=== PATIENT | female | born 1945 | race Caucasian/White ===

== ENCOUNTER → 2024-03-22 06:54 | Outpatient (REF) | payer MEDICARE, OTHER, SELFPAY ==
[2024-03-22 09:40] LABS: % Basophils 0.7 % (0-2); % Eosinophils 3.5 % (0-6); % Immature Granulocytes 0.2 % (0-0.5); % Lymphocytes 19.8 % (20.5-51.1); % Neutrophils 65.8 % (42.2-75.2); Absolute Eosinophils 0.2 10^3/uL (0-0.7); Absolute Lymphocytes 1.1 10^3/uL (1.2-3.4); Absolute Monocytes 0.6 10^3/uL (0.1-0.6); Absolute Neutrophils 3.8 10^3/uL (1.4-6.5); Hematocrit 42.4 % (37.0-47.0); Hemoglobin 14.2 g/dL (12.0-16.0); Mean Corp Hgb Conc. 33.5 g/dL (33.0-37.0); Mean Corpuscular Hgb 31.5 pg (27.0-31.0); Mean Platelet Volume 11.5 fL (7.4-10.4); Nucleated Red Blood Cells % 0 %; Platelet Count 197 10^3/uL (130-400); Red Blood Cell Count 4.51 10^6/uL (4.20-5.40); Red Cell Dist. Width 12.4 % (11.5-14.5); White Blood Cell Count 5.7 10^3/uL (4.8-10.8)
[2024-03-22 09:57] LABS: ALT (SGPT) 32 U/L (0-35); AST (SGOT) 33 U/L (14-36)
== END ==
LOC: HWLAB 06:54
PROVIDERS: ATTENDING PHYSICIAN Nurse Practitioner
DX: R79.89 Other specified abnormal findings of blood chemistry (principal)
CPT/HCPCS: 36415; 84450; 84460; 85025

== ENCOUNTER 2024-12-01 16:08 | Observation (INO) | payer MEDICARE, OTHER, SELFPAY ==
[2024-12-01 10:53] VITALS: BP 136/71
--- NOTE | 2024-12-01 11:57 | ED.GENMED ---
History of Present Illness
General
Chief Complaint: Musculo-Skeletal Complaint
Source: patient
Exam Limitations: none
Time Seen by Provider: 12/01/24 10:57
Nursing documentation reviewed up to this point in time: agreed with
History of Present Illness
History of Present Illness:
79-year-old female presents to the ER complaining left hip pain. She reports at 8:45 PM last night she was walking outside of her house and slipped on the ice hitting her left hip. She was able to get herself back in bed however this morning was
barely able to put weight on her hip. She was able to crawl to the bathroom. She is on Eliquis however denies hitting her head. She denies any headache neck pain. No other complaints of pain.
Review of Systems
Review of Systems
Allergies reviewed?: Yes
All Other Systems: ROS reviewed and negative except as documented in HPI and ROS
Constitutional: Reports no symptoms; Denies fever, fatigue or chills
Respiratory: Reports no symptoms
Cardiac: Reports no symptoms
ABD/GI: Reports no symptoms; Denies nausea or vomiting
Musculoskeletal: Reports other (Left hip pain)
Skin: Reports no symptoms
Neurological: Reports no symptoms and other (Denies loss of consciousness); Denies dizzy or headache
Psychiatric: Reports no symptoms
Phy Exam
General Physical Exam
General Presentation: no apparent distress
General age: appears stated age
General Skin: warm and dry
General Habitus: normal
General Mental: alert
General Hydration: appears well hydrated
Cardiovascular Exam
Cardiovascular Exam: regular rate/rhythm, no murmur and normal peripheral pulses
Pulmonary Exam
Pulmonary Exam: lungs clear and no respiratory distress
Neurological Exam
Neurological Exam: alert and oriented x3
Musculoskeletal Exam
Musculoskeletal Exam: other (Full range of motion to left hip however patient complains of pain to left groin with movement)
Skin Exam
Skin Exam: normal color and warm/dry
Psychiatric Exam
Psychiatric Exam: normal mood/affect
Course
Orders/Labs/Results
Orders:
Orders
12/01/24 11:55
Hip, Left 2-3 Views [CR Hip - LT w/wo Pel 2-3 Vw*] Urgent
Comment:
Reason For Exam: trauma
Include a pelvis x-ray?: Yes
12/01/24 14:04
Vital Signs- Treatment ONCE
Frequency: Once
Morphine Sulfate 2 mg IV NOW STA
12/01/24 14:07
IV Insert/Care/Rem.- Treatment PRN
12/01/24 14:32
Complete Blood Count/With Diff Urgent
Comprehensive Metabolic Panel Urgent
12/01/24 15:09
CT Head W/o Iv Contrast Urgent
Comment:
Reason For Exam: trauma
12/01/24 15:53
Admit/Transfer Patient As Directed
Co-Sign Provider:
Level of Care: Observation services
Assign to:: Medical/Surgical
Physician / Group: stephen lezama
Diagnosis: mech fall with inferior /superior l pubic rami fx's
Code Status As Directed
Resuscitation Status: Full Code
12/01/24 16:00
PRN Pain Medication Management As Directed
May give lesser potent ordered pain med per pt: Yes
preference::
Protocol:: Medication orders for pain may be administered in a
manner that supports deferring to patient preference
when the pt is:
- Requesting an ordered lesser potent pain medication.
Least to most potent pain medications are defined
as: acetaminophen < NSAID < tramadol < opioids
(morphine, oxycodone, hydromorphone).
- Requesting a lesser dose of the same medication IF
ORDERED.
- Requesting a less intrusive route of administration
if both routes are prescribed by the provider (PO <
IV).
12/01/24 16:02
ORTHOPEDIC CONSULT Routine
Consulting Provider: Joshua Sam
Was physician already notified: Yes
Reason for consult: superior inferior left pubic rami fx fall
Abnormal Lab Results
12/01/24
14:32
MCH 31.5 H pg
(27.0-31.0)
MPV 10.8 H fL
(7.4-10.4)
Absolute Neuts (auto) 8.3 H 10^3/uL
(1.4-6.5)
Absolute Lymphs (auto) 0.7 L 10^3/uL
(1.2-3.4)
Absolute Monos (auto) 0.8 H 10^3/uL
(0.1-0.6)
Neutrophils % 83.5 H %
(42.2-75.2)
Lymphocytes % 7.1 L %
(20.5-51.1)
BUN 21 H mg/dl
(7-17)
Glucose 122 H mg/dl
(70-99)
Total Bilirubin 1.5 H mg/dl
(0.2-1.3)
12/01/24 14:32
12/01/24 14:32
Vital Signs
Initial and Last Documented VS:
Initial Vital Signs
Temp Pulse Resp BP Pulse Ox
98.3 F 108 16 136/71 98
12/01/24 10:53 12/01/24 10:53 12/01/24 10:53 12/01/24 10:53 12/01/24 10:53
Last Documented Vital Signs
Temp Pulse Resp BP Pulse Ox
98.3 F 96 18 129/68 93
12/01/24 10:53 12/01/24 14:55 12/01/24 14:55 12/01/24 14:55 12/01/24 14:55
MDM/Problems Addressed
Differential Diagnosis Includes:
not limited to:pelvic/hip / fracture
MDM/Problems Addressed:
Patient is an 79-year-old female who presents after fall last evening. Patient fell around 845 last evening outside of her house on ice and landed on her hip. She denies hitting her head. She is on Eliquis however has no headache no obvious head
injury and injury has been greater than 12 hours with no complaints. Patient's only complaint is left hip pain. On x-ray she does have fractures to left superior acetabular juncture left inferior pubic ramus. She is unable to bear weight and does
live alone. She will require inpatient rehab. Case management consulted there will be a bed tomorrow. Patient will require overnight stay for pain management PT consult rehab can be arranged. Will check basic labs and plan for admission.
Pt was admitted; I did order ct which was negative .
*Critical Care Note
Total Time (30-74mins, 75-104mins- exclusive of procedures): Not Applicable
ED Attending Note
-
Portions of this chart may have been created with voice recognition software.� Occasional wrong word or��sound alike� substitutions may have occurred due to the inherent limitations of voice recognition software.
Discharge Plan
Departure
Patient Disposition: Admit
Date of Disposition: 12/01/24
Time of Disposition: 15:08
Admit to: Med/Surg
Admit to doctor: hospitalist
Presentation/result/management discussed w/ accepting MD/DO: Hospitalist
Patient with high blood pressure during this ER visit?: No
Condition: Fair
Covid-19: Not Applicable
Discharge Problem:
pubic ramus fracture
Interventions
Interventions:
*Risk Screen - Suicide Last Done: 12/01/24 10:53
*General Assessment Last Done: 12/01/24 10:53
*Neglect/Abuse Screening Last Done: 12/01/24 10:53
ED- Fall Risk Assessment Last Done: 12/01/24 14:36
*ED COVID-19 Vaccine History Last Done: 12/01/24 12:34
ED-Musculoskeletal Assessment Last Done: 12/01/24 14:36
--- NOTE | 2024-12-01 14:29 | CM ---
ED CM consulted for SNF placement
Bedside meeting with pt, her granddtr, and lead pressman
Pt resides alone at [facility]
She is independent with her ADLs, no ADs, drives+
Pt with pelvic fx- no plan for surgical intervention at this time
Pt will need SNF placement and without qualifying stay
Referral to [facility] via [facility]
Bed available tomorrow per admissions/Marley
CM plan to reach out to [facility] in the AM to check into [facility] waiver coverage
If not, pt will be private pay at $567/daily
Pt in agreement with costs
Discharge Disposition- [facility] SNF tomorrow via ambulance
[2024-12-01] MEDS: MORPHINE SULFATE 2 MG IV (14:32)
[2024-12-01 14:36] VITALS: BMI 22.6
[2024-12-01 14:40] LABS: % Basophils 0.3 % (0-2); % Eosinophils 1.1 % (0-6); % Immature Granulocytes 0.4 % (0-0.5); % Lymphocytes 7.1 % (20.5-51.1); % Monocytes 7.6 % (1.7-9.3); % Neutrophils 83.5 % (42.2-75.2); Absolute Eosinophils 0.1 10^3/uL (0-0.7); Absolute Lymphocytes 0.7 10^3/uL (1.2-3.4); Absolute Monocytes 0.8 10^3/uL (0.1-0.6); Absolute Neutrophils 8.3 10^3/uL (1.4-6.5); Hematocrit 41.6 % (37.0-47.0); Hemoglobin 14.6 g/dL (12.0-16.0); Mean Corp Hgb Conc. 35.1 g/dL (33.0-37.0); Mean Corpuscular Hgb 31.5 pg (27.0-31.0); Mean Corpuscular Volume 89.7 fL (81.0-99.0); Mean Platelet Volume 10.8 fL (7.4-10.4); Nucleated Red Blood Cells % 0 %; Platelet Count 146 10^3/uL (130-400); Red Blood Cell Count 4.64 10^6/uL (4.20-5.40); Red Cell Dist. Width 12.4 % (11.5-14.5); White Blood Cell Count 9.9 10^3/uL (4.8-10.8)
[2024-12-01 14:55] VITALS: BP 129/68
[2024-12-01 14:56] LABS: ALT (SGPT) 33 U/L (0-35); AST (SGOT) 36 U/L (14-36); Albumin 3.9 g/dl (3.5-5.0); Alkaline Phosphatase 90 U/L (38-126); Blood Urea Nitrogen 21 mg/dl (7-17); Calcium 8.8 mg/dl (8.4-10.2); Carbon Dioxide 27 mmol/L (22-30); Chloride 104 mmol/L (98-107); Estimated Creatinine Clearance 50 ml/min; Glucose 122 mg/dl (70-99); Potassium 4.1 mmol/L (3.5-5.1); Sodium 138 mmol/L (135-145); Total Bilirubin 1.5 mg/dl (0.2-1.3); Total Protein 6.6 g/dl (6.3-8.2); eGFR > 60.00
--- NOTE | 2024-12-01 15:19 | HPS.HSE ---
Family Physician
-
Family Physician: STUART Calzada
Chief Complaint
-
Fall, unable to stand
History of Present Illness
79-year-old female from [facility] ,where she lives alone who states yesterday 11/30/2024 at 8:45 PM she fell while walking outside of her house slipped on the ice hitting her left hip. She reports she was able to get herself back in bed, however
this morning she was barely able to put weight on her left hip she was able to crawl to the bathroom. She is on Eliquis and denies hitting her head no LOC. She complains of pain in her left hip and groin area. In the ER she was noted to have
nondisplaced fractures of the left superior puboacetabular junction and left inferior pubic ramus fractures. She has past medical history of near syncope x 4 since 2010, A-fib on Eliquis, CAD, HLD, osteopenia, arthritis,Right sided breast cancer
2020 status postlumpectomy, radiation
Medical History
Past Medical History
Past Medical History: Reports Other
Additional Past Medical History:
near syncope x 4 since 2010
A-fib on Eliquis
CAD/stent proximal LAD 11/03/2012
HLD
osteopenia
arthritis
Right sided breast cancer 2020 status postlumpectomy/radiation on current anastrozole
Past Surgical History: Reports Other
Additional Past Surgical History:
Appendectomy
Tonsillectomy
Right sided breast cancer 2020 status postlumpectomy/radiation on current anastrozole
Cardiac cath stent proximal LAD 11/03/2012
Social History
Tobacco: Non-smoker
Alcohol: None
Drug: None
Personal: Single
Living: Alone ([facility])
Employment: Retired
Family History
Family History: Not pertinent
Allergies / Home Medications
Allergies reflects when Allergies were last updated in [employer].
Home Medications with original date entered in [employer]
Allergy/Medication List:
Allergies
Allergy/AdvReac Type Severity Reaction Status Date / Time
Iodinated Contrast Media Allergy Rash Verified 12/01/24 10:53
[IV Dye, Iodine Containing
Contrast ]
quinine [Quinine] Allergy Rash Verified 12/01/24 10:53
Home Medications
rosuvastatin 20 mg tablet 20 mg PO QPM 03/23/18
acetaminophen 325 mg tablet 325 mg PO DAILYPRN PRN mild pain 12/01/24
anastrozole 1 mg tablet 1 mg PO QPM 12/01/24
apixaban 5 mg tablet (Eliquis) 5 mg PO BID 12/01/24
losartan 50 mg tablet 50 mg PO QPM 12/01/24
metoprolol succinate 25 mg tablet,extended release 24 hr 37.5 mg PO DAILY 12/01/24
psyllium husk 0.4 gram capsule (Metamucil) 0.4 g PO NOON 12/01/24
psyllium husk 0.4 gram capsule (Metamucil) 0.8 g PO BID@0800,2000 12/01/24
therapeutic multivitamin 1 tab PO DAILY 12/01/24
Review of Systems
-
History Source: Patient
A 12 point ROS was completed and negative except as noted: Yes
Constitutional: Denies Fever, Fatigue or Chills
EENT: Denies Sore Throat or Runny Nose
Respiratory: Denies Cough or Trouble Breathing
Cardiac: Denies Chest Pain, Diaphoresis, Palpitations or Syncope
Abdomen/GI: Denies Abdominal Pain, Nausea, Vomiting, Diarrhea, Constipated, Bloody Stools or Black Stools
: Denies Dysuria, Frequency, Flank Pain, Incontinence, Difficulty Voiding or Urgency
Musculoskeletal: Reports Other (Pain left lower back just above buttocks area); Denies Joint Pain or Edema
Skin: Denies Itching, Rash or Other
Neurological: Denies Dizzy, Headache or Weakness
Endocrine: Reports No Symptoms
Hematologic/Lymphatic: Reports No Symptoms
Psych: Reports Calm
Physical Exam
Vital Signs
Vital Signs
Temp Pulse Resp BP Pulse Ox
98.3 F 96 18 129/68 93
12/01/24 10:53 12/01/24 14:55 12/01/24 14:55 12/01/24 14:55 12/01/24 14:55
Physical Exam
General: Conversant and Pain; No Fever or Chills
HEENT: NormoCephalic, Anicteric, Moist mucous membranes, Atraumatic, PERRLA, [place] Conjunctivae, No Ptosis and Neck Nontender
Respiratory: Clear; No Wheezes, Rales or Rhonchi
Cardiac: S1/S2 and Regular Rhythm; No Murmur, Rub, Gallop or Peripheral Edema
Breast: Deferred by me
GI: Soft, Non Tender, Non Distended, Normal Bowel Sounds and No Hepatosplenomegaly
Rectal: Deferred by Provider
Genito-urinary: Deferred by me
Musculoskeletal: No Clubbing, No Cyanosis, No Edema and Other (Pain left lower back just above buttocks area)
Skin: Warm and Dry; No Rash or Jaundice
Neuro: AO x 3, Cranial Nerves Intact, No Sensory Deficits and Other (Limit moving of legs secondary to pelvic fractures); No Slurred Speech, Facial Droop, Tremors or Sedated
Psych: Calm
Laboratory Results
-
12/01/24 14:32
12/01/24 14:32
Laboratory Results
Total Bilirubin 1.5 mg/dl (0.2-1.3) H 12/01/24 14:32
AST 36 U/L (14-36) 12/01/24 14:32
ALT 33 U/L (0-35) 12/01/24 14:32
Alkaline Phosphatase 90 U/L (38-126) 12/01/24 14:32
Data Reviewed
-
Lab Data: Labs Reviewed by me
Impression/Plan
-
Impression/plan:
Observation MedSurg
#Mechanical fall with left superior/inferior pubic ramus fractures
-CT head pending
-Tylenol as needed mild pain, percocet - mod pain, morphine severe pain
-Lidoderm patch to left lower back just above buttocks
-Bowel regimen MiraLAX daily, patient's Metamucil, senna twice daily
-Consult PT/OT
-Consult case management for rehab placement ([facility] as patient currently lives there independent)
X-ray left hip pelvis:
1. ACUTE NONDISPLACED FRACTURES of the LEFT SUPERIOR PUBOACETABULAR JUNCTION and LEFT INFERIOR PUBIC RAMUS.
2. Minimal bilateral osteoarthritis of the hips.
3. 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
4. Severe right-sided facet joint arthrosis at L4/L5.
5. Large 9.2 cm calcified uterine leiomyoma.
#A-fib
-Continue Eliquis 5 mg twice daily
-Continue metoprolol 25 XL in the a.m.
#HTN�benign
BP 129/68
-Continue losartan 50 mg at dinner
#CAD
#Cardiac cath stent proximal LAD 11/03/2012
-Continue metoprolol 25 XL in a.m., Crestor 20 mg at dinner
2D echo 01/03/2023: EF 60 to 65%, normal LVS LVSF, no wall abnormalities, stage I diastolic dysfunction, mild aortic regurg, mild tricuspid regurg, pulm arterial pressure 25 mmHg
#Right sided breast cancer 2020 status postlumpectomy, radiation
-Continue anastrozole 1 mg at dinner
Severe DDD L4/L5 and L5/S1 per CT
Severe right-sided facet joint arthrosis L4/L5
Incidental large 9.2 cm calcified uterine leiomyoma on CT
DVT prophylaxis
Continue Eliquis 5 mg twice daily
Full code
--- NOTE | 2024-12-01 16:03 | W.PN.UPDATE ---
Update Note
Progress Note Update
This is an addendum to the H&P dictated by Nohemi Leonardo on 12/01/2024.
I saw and examined the patient.
The [employer]IM[employer] or PA's note was reviewed and I agree with the note.
Comment:
Patient 79 years old female with history of hyperlipidemia, A-fib, CAD, breast cancer, came into the hospital after a fall. She had a mechanical fall and complained of left hip area and groin pain. She denied hitting her head. She has a mild
right hip discomfort but not as much as the left. Denied chest pain or shortness of breath or loss of consciousness. Denies fevers or chills. She had a hip x-ray that shows nondisplaced fracture of the left superior pubic acetabular junction and
left inferior pubic ramus. Labs unremarkable. She was referred to hospital service for further evaluation.
Physical exam:
General: In distress because of pain in the pelvic area when she moves around
HEENT: Normocephalic, Atraumatic and Moist Mucous Membranes
Respiratory: Clear to Auscultation; Negative Wheezes, Rales or Rhonchi
Cardiac: Regular Rhythm and S1/S2
GI: Soft, Nontender and Nondistended
Musculoskeletal: No Clubbing, No Cyanosis and No Edema
Neuro: Awake, Alert and Oriented
Psych: Calm
A/P:
Mechanical fall with pelvic fracture--> pain control, PT OT eval, CT pending, ortho eval, trimming caser consult for discharge disposition.
--- NOTE | 2024-12-01 17:04 | CON.ORTHO ---
Consultation
-
Date/Time Consultation Requested: 12/01/24 16:02
Date/Time Consultation Performed: 12/01/24 16:45
Requesting Provider: Nohemi DAVIDSON
Performing Provider: Penelope Lal PA-C, Joshua Sam MD
Reason for Consultation: pelvic fractures
Consultation - Orthopedics
History
79yo female presents to [facility] for left hip and pelvic pain. Last evening, she was walking outside of her house, slipped on ice, and fell. She was unable to get up and managed to crawl inside her house. She then crawled to bed. She
reports that she had pain all night and was not able to sleep. This morning she continued with pain and inability to ambulate so she called and has EMS bring her to the ER for evaluation. Xrays were performed which reveal pelvic fractures. She
denies pain elsewhere. She denies hitting her head. She is in Eliquis
PAST MEDICAL HISTORY: near syncope x 4 since 2010, A-fib on Eliquis, CAD, HLD, osteopenia, arthritis, Right sided breast cancer 2019
PAST SURGICAL HISTORY: Appendectomy, Tonsillectomy, Right sided breast cancer 2020 status postlumpectomy/radiation, Cardiac cath stent proximal LAD 11/03/2012
SOCIAL HISTORY: denies tobacco, alcohol. lives alone in [facility]. Ambulates without assistive device at baseline
FAMILY HISTORY: Noncontributory
REVIEW OF SYSTEMS: 12 point review of systems obtained and negative except those mentioned in the HPI
Allergies / Home Medications
Allergy/AdvReac Type Severity Reaction Status Date / Time
Iodinated Contrast Media Allergy Rash Verified 12/01/24 10:53
[IV Dye, Iodine Containing
Contrast ]
quinine [Quinine] Allergy Rash Verified 12/01/24 10:53
�Medication �Instructions �Recorded
rosuvastatin 20 mg tablet 20 mg PO QPM 03/23/18
acetaminophen 325 mg tablet 325 mg PO DAILYPRN PRN mild pain 12/01/24
anastrozole 1 mg tablet 1 mg PO QPM 12/01/24
apixaban 5 mg tablet (Eliquis) 5 mg PO BID 12/01/24
losartan 50 mg tablet 50 mg PO QPM 12/01/24
metoprolol succinate 25 mg 37.5 mg PO DAILY 12/01/24
tablet,extended release 24 hr
psyllium husk 0.4 gram capsule 0.4 g PO NOON 12/01/24
(Metamucil)
psyllium husk 0.4 gram capsule 0.8 g PO BID@0800,2000 12/01/24
(Metamucil)
therapeutic multivitamin 1 tab PO DAILY 12/01/24
Vital Signs / Lab Results
Temp Pulse Resp BP Pulse Ox
98.3 F 96 18 129/68 93
12/01/24 10:53 12/01/24 14:55 12/01/24 14:55 12/01/24 14:55 12/01/24 14:55
12/01/24 14:32
12/01/24 14:32
RADIOGRAPHIC FINDINGS:
Xrays left hip and pelvis show ACUTE NONDISPLACED FRACTURES of the LEFT SUPERIOR PUBOACETABULAR JUNCTION and LEFT INFERIOR PUBIC RAMUS. Minimal bilateral osteoarthritis of the hips. 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 Severe
right-sided facet joint arthrosis at L4/L5. Large 9.2 cm calcified uterine leiomyoma.
PHYSICAL EXAM:
General: no acute distress. AAOx3
HEENT: NCAT, sclera anicteric, normal hearing
Heart: No JVD
Lungs: Normal work of breathing on room air
MSK: Directed exam of lower extremities reveal skin intact. no discolorations. there is mild tenderness to palpation over the anterior left hip and groin. negative log roll. ROM hip with some discomfort. able to plantarflex and dorsiflex the ankle.
calf soft and nontender. NVI distally
Assessment / Plan
ASSESSMENT: 79yo female with left nondisplaced pelvic fracture
PLAN: Unfortunately, Ms. Lennon has sustained nondisplaced left sided pelvic fractures with her fall last evening. This is amenable to nonoperative treatment. She may be weight bearing as tolerated with a walker. PT/OT evaluation. Continue with pain
management as needed. Follow up outpatient in 4 weeks for repeat pelvis xray. Orthopedics will sign off at this time. Please reach out with any questions or concerns.
[2024-12-01] MEDS: LIDOCAINE 4% PATCH 1 PATCH TOPICAL (17:58)
[2024-12-01 19:21] VITALS: BP 111/62
[2024-12-01 19:30] VITALS: BP 146/79; BMI 22.6
[2024-12-01] MEDS: TYLENOL 650 MG PO (21:06)
[2024-12-01] MEDS: SENOKOT PO (21:07)
[2024-12-01 23:45] VITALS: BP 109/67
[2024-12-02] MEDS: TYLENOL 650 MG PO ×4 (04:01→20:34)
[2024-12-02 05:21] LABS: % Basophils 0.5 % (0-2); % Eosinophils 3.4 % (0-6); % Immature Granulocytes 0.3 % (0-0.5); % Lymphocytes 12.1 % (20.5-51.1); % Neutrophils 75.7 % (42.2-75.2); Absolute Eosinophils 0.3 10^3/uL (0-0.7); Absolute Lymphocytes 0.9 10^3/uL (1.2-3.4); Absolute Monocytes 0.6 10^3/uL (0.1-0.6); Absolute Neutrophils 5.8 10^3/uL (1.4-6.5); Hematocrit 40.2 % (37.0-47.0); Hemoglobin 13.9 g/dL (12.0-16.0); Mean Corp Hgb Conc. 34.6 g/dL (33.0-37.0); Mean Corpuscular Hgb 31.4 pg (27.0-31.0); Mean Corpuscular Volume 90.7 fL (81.0-99.0); Mean Platelet Volume 11.7 fL (7.4-10.4); Nucleated Red Blood Cells % 0 %; Platelet Count 128 10^3/uL (130-400); Red Blood Cell Count 4.43 10^6/uL (4.20-5.40); Red Cell Dist. Width 12.6 % (11.5-14.5); White Blood Cell Count 7.6 10^3/uL (4.8-10.8)
[2024-12-02 05:37] LABS: Blood Urea Nitrogen 18 mg/dl (7-17); Calcium 8.4 mg/dl (8.4-10.2); Carbon Dioxide 25 mmol/L (22-30); Chloride 104 mmol/L (98-107); Estimated Creatinine Clearance 44 ml/min; Glucose 109 mg/dl (70-99); Potassium 4.1 mmol/L (3.5-5.1); Sodium 135 mmol/L (135-145); eGFR > 60.00
[2024-12-02 07:41] VITALS: BP 131/78
--- NOTE | 2024-12-02 08:21 | W.PN.HOSP.TC ---
Today's Communication/Plan
-
Pain control. PT OT.
Assessment / Plan
Assessment / Plan
Physical Exam
General: Conversant and Pain; No Fever or Chills
HEENT: NormoCephalic, Anicteric, Moist mucous membranes, Atraumatic, PERRLA, [place] Conjunctivae, No Ptosis and Neck Nontender
Respiratory: Clear; No Wheezes, Rales or Rhonchi
Cardiac: S1/S2 and Regular Rhythm; No Murmur, Rub, Gallop or Peripheral Edema
Breast: Deferred by me
GI: Soft, Non Tender, Non Distended, Normal Bowel Sounds and No Hepatosplenomegaly
Rectal: Deferred by Provider
Genito-urinary: Deferred by me
Musculoskeletal: No Clubbing, No Cyanosis, No Edema and Other (Pain left lower back just above buttocks area)
Skin: Warm and Dry; No Rash or Jaundice
Neuro: AO x 3, Cranial Nerves Intact, No Sensory Deficits and Other (Limit moving of legs secondary to pelvic fractures); No Slurred Speech, Facial Droop, Tremors or Sedated
Psych: Calm
A/P:
#Mechanical fall with left superior/inferior pubic ramus fractures
-CT head negative for acute intracranial abnormalities
-Tylenol as needed mild pain, percocet - mod pain, morphine severe pain
-Lidoderm patch to left lower back just above buttocks
-Bowel regimen MiraLAX daily, patient's Metamucil, senna twice daily
-Consult PT/OT
-Consult case management for rehab placement ([facility] as patient currently lives there independent)
-Orthopedic consult appreciated
X-ray left hip pelvis:
1. ACUTE NONDISPLACED FRACTURES of the LEFT SUPERIOR PUBOACETABULAR JUNCTION and LEFT INFERIOR PUBIC RAMUS.
2. Minimal bilateral osteoarthritis of the hips.
3. 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
4. Severe right-sided facet joint arthrosis at L4/L5.
5. Large 9.2 cm calcified uterine leiomyoma.
#A-fib
-Continue Eliquis--> she is on 5 mg twice daily but she meets criteria for dose reduction to 2.5 mg twice a day
-Continue metoprolol 25 XL daily
#HTN�benign
BP stable
-Continue losartan 50 mg at dinner and beta-cain in the morning
#CAD
#Cardiac cath stent proximal LAD 11/03/2012
-Continue metoprolol 25 XL in a.m., Crestor 20 mg at dinner
2D echo 01/03/2023: EF 60 to 65%, normal LVS LVSF, no wall abnormalities, stage I diastolic dysfunction, mild aortic regurg, mild tricuspid regurg, pulm arterial pressure 25 mmHg
#Right sided breast cancer 2020 status postlumpectomy, radiation
-Continue anastrozole 1 mg at dinner
Severe DDD L4/L5 and L5/S1 per CT
Severe right-sided facet joint arthrosis L4/L5
Incidental large 9.2 cm calcified uterine leiomyoma on CT
DVT prophylaxis
Continue Eliquis
Full code
Anticipated Discharge: 24 - 48 hours
Subjective/Interval History
-
Date of Service: December 02, 2024
Patient states her pelvic pain is worse when she is moving. Denies chest pain or shortness of breath
Objective Data
-
Labs:
Laboratory Results
12/02/24
04:35
WBC 7.6
Hgb 13.9
Hct 40.2
Plt Count 128 L
Sodium 135
Potassium 4.1
Chloride 104
Carbon Dioxide 25
BUN 18 H
Creatinine 0.8
Glucose 109 H
Calcium 8.4
Vital Signs:
Vital Signs
Temp Pulse Resp BP Pulse Ox
98.1 F 57 14 131/78 96
12/02/24 07:41 12/02/24 07:41 12/02/24 07:41 12/02/24 07:41 12/02/24 07:41
I&O
12/01/24 12/02/24 12/03/24
06:59 06:59 06:59
Output Total 300 / 300
Balance -300 / -300
[2024-12-02 08:40] VITALS: BP 147/79; PULSE 90
--- NOTE | 2024-12-02 08:50 | CM ---
CM spoke with [facility]- pt is eligible for the [facility] waiver program
Per Dr Chris- JAIMIE tomorrow
Update to [facility]- [facility] admissions
Bed remains available tomorrow
Bedside update to pt
She is aware if auth is denied through [facility], bed will be private pay
She remains in agreement with plan
MENDOSA verbally reviewed- copy provided
CM to submit for [facility] waiver auth upon dc
Discharge Disposition- [facility] vs private pay
[2024-12-02 09:00] VITALS: BP 147/79; PULSE 90
[2024-12-02] MEDS: MIRALAX 17 GRAMS PO (09:04)
[2024-12-02] MEDS: ELIQUIS 2.5 MG PO ×2 (09:16→20:22)
[2024-12-02] MEDS: TOPROL XL 37.5 MG PO (09:16)
[2024-12-02] MEDS: SENOKOT 8.6 MG PO (09:17)
[2024-12-02 15:19] VITALS: BP 131/73
[2024-12-02] MEDS: CRESTOR 20 MG PO (17:05)
[2024-12-02] MEDS: COZAAR 50 MG PO (17:05)
[2024-12-02] MEDS: ARIMIDEX 1 MG PO (17:05)
[2024-12-02] MEDS: LIDOCAINE 4% PATCH TOPICAL (20:23)
[2024-12-02] MEDS: SENOKOT PO (20:33)
[2024-12-02 23:00] VITALS: BP 123/60
[2024-12-03 07:30] VITALS: BP 130/56
[2024-12-03 08:08] LABS: Hematocrit 39.6 % (37.0-47.0)
[2024-12-03 08:45] LABS: Blood Urea Nitrogen 21 mg/dl (7-17); Calcium 8.7 mg/dl (8.4-10.2); Carbon Dioxide 25 mmol/L (22-30); Chloride 104 mmol/L (98-107); Estimated Creatinine Clearance 50 ml/min; Glucose 100 mg/dl (70-99); Potassium 4.1 mmol/L (3.5-5.1); Sodium 138 mmol/L (135-145); eGFR > 60.00
[2024-12-03] MEDS: TOPROL XL 37.5 MG PO (08:47)
[2024-12-03] MEDS: SENOKOT 8.6 MG PO (08:47)
[2024-12-03] MEDS: ELIQUIS 2.5 MG PO (08:50)
[2024-12-03] MEDS: MIRALAX 17 GRAMS PO (08:51)
--- NOTE | 2024-12-03 10:14 | W.PN.HOSP.TC ---
Addendum entered and electronically signed by Jalil Oliver MD 12/03/24 10:44:
More than 30 minutes spent in discharge including
Final examination of the patient
Summarizing hospital stay
Instructions for continuing care to all relevant caregivers
Preparation of discharge records, prescriptions, and referral forms
Total time spent (in minutes): 38 mins
Original Note:
Today's Communication/Plan
-
d/c planning for rehab
Assessment / Plan
Assessment / Plan
#Mechanical fall with left superior/inferior pubic ramus fractures
-CT head negative for acute intracranial abnormalities
-Tylenol as needed mild pain, percocet - mod pain, morphine severe pain
-Lidoderm patch to left lower back just above buttocks
-Ortho cleared - no surgical indication
-PT recommended rehab and pending approval
X-ray left hip pelvis:
1. ACUTE NONDISPLACED FRACTURES of the LEFT SUPERIOR PUBOACETABULAR JUNCTION and LEFT INFERIOR PUBIC RAMUS.
2. Minimal bilateral osteoarthritis of the hips.
3. 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
4. Severe right-sided facet joint arthrosis at L4/L5.
5. Large 9.2 cm calcified uterine leiomyoma.
#A-fib
-Continue Eliquis--> she is on 5 mg twice daily but she meets criteria for dose reduction to 2.5 mg twice a day (age >80 and weight < 60kg)
-Continue metoprolol 25 XL daily
#HTN�benign
BP stable
-Continue losartan 50 mg at dinner and beta-cain in the morning
#CAD
#Cardiac cath stent proximal LAD 11/03/2012
-Continue metoprolol 25 XL in a.m., Crestor 20 mg at dinner
2D echo 01/03/2023: EF 60 to 65%, normal LVS LVSF, no wall abnormalities, stage I diastolic dysfunction, mild aortic regurg, mild tricuspid regurg, pulm arterial pressure 25 mmHg
#Right sided breast cancer 2019 status postlumpectomy, radiation
-Continue anastrozole 1 mg at dinner
Severe DDD L4/L5 and L5/S1 per CT
Severe right-sided facet joint arthrosis L4/L5
Incidental large 9.2 cm calcified uterine leiomyoma on CT
DVT prophylaxis Continue Eliquis
Full code
Anticipated Discharge: Within 24 hours
Subjective/Interval History
-
Date of Service: December 03, 2024
resting comfortably in bed
some pain in left pelvic area on movement
had BM
no other issues
Objective Data
-
Labs:
Laboratory Results
12/03/24
07:28
Hgb 14.0
Hct 39.6
Sodium 138
Potassium 4.1
Chloride 104
Carbon Dioxide 25
BUN 21 H
Creatinine 0.7
Glucose 100 H
Calcium 8.7
Vital Signs:
Vital Signs
Temp Pulse Resp BP Pulse Ox
97.8 F 106 16 130/56 95
12/03/24 07:30 12/03/24 08:47 12/03/24 07:30 12/03/24 08:47 12/03/24 07:30
I&O
12/02/24 12/03/24 12/04/24
06:59 06:59 06:59
Intake Total 240 / 240
Output Total 300 / 300
Balance -300 / -300 240 / 240
Review of Systems
-
Respiratory: Reports No Symptoms
Cardiac: Reports No Symptoms
Abdomen/GI: Reports No Symptoms
Physical Exam
-
General: No Apparent Distress and Comfortable
HEENT: Negative Oxygen
Respiratory: Clear to Auscultation
Cardiac: Regular Rhythm and S1/S2; Negative Murmur or Rub
GI: Soft, Nontender and Nondistended
Musculoskeletal: No Edema
Neuro: Awake, Alert, Oriented, No Motor Deficits and Nonfocal/Grossly Intact
Psych: Calm
--- NOTE | 2024-12-03 10:48 | CM ---
Addendum entered by ELAINE Capone 12/03/24 14:52:
IMM signed and on chart.
Addendum entered by ELAINE Capone 12/03/24 13:59:
Received call from Marley in admissions at [facility] who confirmed that she can take patient today and received approval through [facility].
# For report [phone]

Will complete medical necessity and transfer sheet to spray unit feeder.
Original Note:
Spoke with Marley in admissions at [facility] who stated that she spoke with yesterday and stated that she does have a bed for patient. Patient still listed as obs and would have to go under [facility] waiver. Placed a call to Monae Clark rep for
who stated to fax attending's most recent note over to [phone] att: Tia.
Will await determination from [facility] regarding auth.
Plan: Case management will continue to follow and assist with discharge planning. Hopeful transfer to [facility] today if auth is obtained.
[2024-12-03 11:30] VITALS: BP 125/64; PULSE 98; O2SAT 95
[2024-12-03 11:49] VITALS: BP 125/64; PULSE 98; O2SAT 97
[2024-12-03 14:43] LABS: COVID-19 Antigen Negative (Negative)
[2024-12-03 15:33] VITALS: BP 106/77
[2024-12-03] MEDS: CRESTOR 20 MG PO (17:01)
[2024-12-03] MEDS: COZAAR 50 MG PO (17:01)
[2024-12-03] MEDS: ARIMIDEX 1 MG PO (17:01)
--- NOTE | 2024-12-03 18:20 | W.DCSUMMARY ---
Discharge Summary
Discharge Data
Date of Admission: 12/01/24
Date of Discharge: 12/03/24
-
Pending Results: No
Hospital Course
Discharging Physician : Dr Jalil Oliver
Disposition : SNF rehab
Primary care physician : Cristopher DAVIDSON
Principal Discharge diagnosis :
Left pubo-acetabular junction/inferior pubic rami fracture
Mechanical fall
Chronic Discharge diagnosis :
Essential hypertension
Paroxysmal atrial fibrillation
Coronary artery disease with history of left anterior descending artery stent
History of right-sided breast cancer status postlumpectomy/radiation
Degenerative joint disease of lumbar/sacral spine
calcified uterine leiomyoma
Hospital Course :
Patient is an 79-year-old female with admission past medical history came to ER after having a slip and fall at home where patient ended up landing on the left side. Patient was able to get back up and into bed although was having significant pain
and required to crawl to bathroom. Patient came to ER for further evaluation and an hip x-ray showing nondisplaced left superior acetabular junction and left inferior pubic rami fracture. Orthopedic surgery evaluated patient and there was no
surgical indication. Patient was recommended to have conservative management with pain control and physical therapy. PT OT evaluated patient and was felt appropriate for rehab placement. After approval patient was discharged to [facility]
facility for rehab.
Of note patient Eliquis dose has been decreased to 2 and half milligram twice daily as patient weight less than 60 kg and age above 80.
Important imaging findings :
None
Procedure findings :
None
Discharge Plan
-
Patient Disposition: [facility]/SNF
Discharge Diagnosis/Procedures: Pelvic fracture
Condition: Fair
Diet: Low Cholesterol
Activity: As tolerated
Driving Restrictions: No driving
Bathing Restrictions: OK to Shower
Referrals:
Cristopher Leon CRNP [Family Provider] - in one week
Prescriptions:
New
polyethylene glycol 3350 17 gram Powder In Packet
17 g PO DAILY Qty: 30 0RF
oxycodone 5 mg Tablet
5 mg PO Q4HPRN PRN (Reason: mod sev pain) Qty: 14 0RF
Eliquis 5 mg Tablet
2.5 mg PO BID Qty: 60 0RF
Continued
rosuvastatin 20 MG tablet
20 mg PO QPM
losartan 50 mg Tablet
50 mg PO QPM
anastrozole 1 mg Tablet
1 mg PO QPM
acetaminophen 325 mg Tablet
325 mg PO DAILYPRN PRN (Reason: mild pain)
therapeutic multivitamin Tablet
1 tab PO DAILY
metoprolol succinate 25 mg Tablet Extended Release 24 Hr
37.5 mg PO DAILY
psyllium husk [Metamucil] 0.4 gram Capsule
0.8 g PO BID@0800,2000
psyllium husk [Metamucil] 0.4 gram Capsule
0.4 g PO NOON
Discontinued
Eliquis 5 mg Tablet
5 mg PO BID
Discharge Orders:
Discharge Patient (As Directed); Ordered 12/03/24
Ordered By: Jalil Oliver
Discharge Date and Time
Discharge Date/Time: 12/03/24 18:10
Print Language: ROMANIAN
== END 2024-12-03 18:10 ==
LOC: 2 SOUTH 16:08
PROVIDERS: Clinical Nurse Specialist Family Health; Nurse Practitioner; ADMITTING PHYSICIAN Hospitalist; ATTENDING PHYSICIAN Hospitalist; CONSULT PHYSICIAN Student in an Organized Health Care Education/Training Program; EMERGENCY PHYSICIAN Emergency Medicine
DX: S32.592A Other specified fracture of left pubis, initial encounter for closed fracture (principal); S32.492A Other specified fracture of left acetabulum, initial encounter for closed fracture; W00.0XXA Fall on same level due to ice and snow, initial encounter; Y93.01 Activity, walking, marching and hiking; Y92.007 Garden or yard of unspecified non-institutional (private) residence as the place of occurrence of the external cause; E78.5 Hyperlipidemia, unspecified; M85.80 Other specified disorders of bone density and structure, unspecified site; I48.0 Paroxysmal atrial fibrillation; I25.10 Atherosclerotic heart disease of native coronary artery without angina pectoris; M16.0 Bilateral primary osteoarthritis of hip; M51.379 Other intervertebral disc degeneration, lumbosacral region without mention of lumbar back pain or lower extremity pain; M47.816 Spondylosis without myelopathy or radiculopathy, lumbar region; D25.9 Leiomyoma of uterus, unspecified; I10 Essential (primary) hypertension; M51.369 Other intervertebral disc degeneration, lumbar region without mention of lumbar back pain or lower extremity pain; Z79.01 Long term (current) use of anticoagulants; Z92.3 Personal history of irradiation; Z85.3 Personal history of malignant neoplasm of breast; Z95.5 Presence of coronary angioplasty implant and graft; Z91.041 Radiographic dye allergy status; Z79.811 Long term (current) use of aromatase inhibitors; Z60.2 Problems related to living alone; Z75.1 Person awaiting admission to adequate facility elsewhere; Z11.52 Encounter for screening for COVID-19
CPT/HCPCS: 70450; 73502; 80048; 80053; 85014; 85018; 85025; 87811; 96374; 97116; 97162; 97166; 97530; 97535; 99285; G0378

== ENCOUNTER → 2024-12-27 14:36 | Outpatient (REF) | payer MEDICARE, OTHER, SELFPAY | LOC: HWRAD 14:36 | DX: S32.592S Other specified fracture of left pubis, sequela (principal) | CPT/HCPCS: 73502 ==

== ENCOUNTER → 2025-05-22 07:39 | Outpatient (REF) | payer MEDICARE, OTHER, SELFPAY | LOC: RCS 07:39 | PROVIDERS: ATTENDING PHYSICIAN Internal Medicine Cardiovascular Disease | DX: I48.91 Unspecified atrial fibrillation (principal); R07.89 Other chest pain | CPT/HCPCS: 78452; 93017; A9500 ==